=== PATIENT | female | born 1935 | race Caucasian/White ===

== ENCOUNTER 2023-06-09 07:41 | Emergency (ER) | payer OTHER, SELFPAY ==
[2023-06-09 07:42] VITALS: BP 182/72
--- NOTE | 2023-06-09 07:43 | ED.GENMED ---
History of Present Illness
General
Chief Complaint: Fall
Time Seen by Provider: 06/09/23 07:43
History of Present Illness
History of Present Illness:
HPI: The patient comes in from home after a fall. I spoke to EMS for history. At around 5 AM, the patient's family heard her fall. They immediately checked on her. There was concern for head injury. There was no change in her mental status.
She does have baseline dementia and the only medications he take is for dementia. She does not take any anticoagulation or antiplatelets.
EXAM:
GENERAL: Appears in no distress
HEAD: There is suggestion of left-sided hematoma very small
C-SPINE: No midline C-spine tenderness
HEENT: Moist oral mucosa
CARDIOVASCULAR: Regular rate and rhythm
PULMONARY: No respiratory distress, breathing is nonlabored, equal and clear breath sounds
ABDOMEN: Soft and nontender with no peritoneal signs
NEUROLOGIC: The patient has evidence of dementia, not oriented to month or place, strength is equal in all extremities
EXTREMITIES: Moves all extremities equally, no tenderness, no edema, no pain with passive range of motion into rotation of either hip
PYSCHIATRIC: Very limited historian, poor insight and judgment
ED COURSE:
7:40 AM: I initially evaluated patient
NUMBER AND COMPLEXITY OF PROBLEMS ADDRESSED AT THE ENCOUNTER
� Chronic conditions affecting care: Dementia
� Acute Exacerbation and/or Progression of Chronic Illness: The fall is an acute problem
� Differential Diagnosis includes: Minor head injury, concussion, intracranial hemorrhage, hypoglycemia
AMOUNT AND/OR COMPLEXITY OF DATA TO BE REVIEWED AND ANALYZED
� I performed an independent evaluation of and my interpretation is:
EKG:
CT: CT imaging shows no acute abnormality including no hemorrhage
X-rays:
Laboratory Studies: Blood sugar 98
Other:
� Review of other/old records: No old records available for review in [facility]
� Clinical information was obtained by an independent historian: I spoke to the daughter at bedside at 8:50 AM
� Prescriptions/Medications Considered but not given:
� Further testing considered but not performed:
RISK OF COMPLICATIONS AND/OR MORBIDITY OR MORTALITY OF PATIENT MANAGEMENT
� Social determinants of health affecting care: Has dementia but lives with family at home
� Discussion with other providers:
� Escalation of care including admission/observation vs risk of discharge considered: Blood sugar normal, CT brain shows no acute abnormality, reassessment at 8:57 AM, she is very well-appearing with no other symptoms. I spoke
to the daughter at bedside. Daughter reports no other concerns.
Phy Exam
Physical Exam
Physical Exam:
See HPI
Course
Orders/Labs/Results
Orders:
Orders
06/09/23 07:43
CT Head W/o Iv Contrast Urgent
Comment:
Reason For Exam: head injury
06/09/23 07:45
Bedside Glucose- Treatment ONCE
Vital Signs
Initial and Last Documented VS:
Initial Vital Signs
Temp Pulse Resp BP Pulse Ox
98.3 F 74 16 182/72 100
06/09/23 07:42 06/09/23 07:42 06/09/23 07:42 06/09/23 07:42 06/09/23 07:42
Last Documented Vital Signs
Temp Pulse Resp BP Pulse Ox
98.3 F 74 16 182/72 100
06/09/23 07:42 06/09/23 07:42 06/09/23 07:42 06/09/23 07:42 06/09/23 07:42
*Critical Care Note
Total Time (30-74mins, 75-104mins- exclusive of procedures): Not Applicable
ED Attending Note
-
Portions of this chart may have been created with voice recognition software.� Occasional wrong word or��sound alike� substitutions may have occurred due to the inherent limitations of voice recognition software.
Discharge Plan
Departure
Patient Disposition: Home (Routine Discharge)
Date of Disposition: 06/09/23
Time of Disposition: 08:55
Patient with high blood pressure during this ER visit?: Yes
Discharge Problem:
Head injury
Instructions: Head Injury in Adults (DC), BLOOD PRESSURE
Referrals:
UNKNOWN - PT DOES,NOT KNOW [Family Provider] -
Activity Restrictions/Additional Instructions:
CAT scan of the brain shows no bleeding or other acute abnormality. Blood sugar is normal at 98. Blood pressure was high at 182/72 upon arrival�I recommend that she follows up with primary care doctor for reassessment of her blood pressure.
Interventions
Interventions:
*General Assessment Last Done: 06/09/23 07:42
*Neglect/Abuse Screening Last Done: 06/09/23 07:42
ED- Fall Risk Assessment Last Done: 06/09/23 07:42
*ED COVID-19 Vaccine History Last Done: 06/09/23 07:42
ED- Neurological Assessment Last Done: 06/09/23 07:42
[2023-06-09 07:55] LABS: Glucose - Point of Care 98 mg/dl (70-99)
[2023-06-09 09:39] VITALS: BMI 22.8
== END 2023-06-09 09:40 | disposition home or self-care (01) ==
LOC: EMR 07:41
PROVIDERS: EMERGENCY PHYSICIAN Emergency Medicine; FAMILY PHYSICIAN Family Medicine
DX: S09.90XA Unspecified injury of head, initial encounter (principal); W19.XXXA Unspecified fall, initial encounter; F03.90 Unspecified dementia, unspecified severity, without behavioral disturbance, psychotic disturbance, mood disturbance, and anxiety
CPT/HCPCS: 99284; 70450; 82962